=== PATIENT | female | born 1940 | race Caucasian/White ===

== ENCOUNTER 2019-04-06 13:39 | Inpatient (IN) | payer OTHER ==
[~2019-04-06] VITALS: Ht 162.6 cm; Wt 67.9 kg
[~2019-04-06 13:39] MED LIST: ASPIR 8181 MG PO; CIPRO500 MG PO; CRESTOR10 MG PO; CRESTOR40 MG PO; HYDROCHLOROTHIA25 M2 PO; PROZAC20 MG PO; TICLID250 MG PO; VASOTEC10 MG PO
[2019-04-06 13:44] VITALS: BP 138/70
[2019-04-06] MEDS ORDERED: PROZAC20 MG PO (13:48)
[2019-04-06 15:28] LABS: ABSOLUTE BASOPHILS 0.1 thou/uL (0.0-0.2); ABSOLUTE EOSINOPHILS 0.3 thou/uL (0.0-0.7); ABSOLUTE LYMPHOCYTES 1.5 thou/uL (0.8-5.3); ABSOLUTE MONOCYTES 0.3 thou/uL (0.0-1.2); ABSOLUTE NEUTROPHILS 6.5 thou/uL (1.6-8.1); BASOPHILS 0.9 %; EOSINOPHILS 3.6 %; HEMATOCRIT 34.9 % (37.0-47.0); HEMOGLOBIN 11.8 gm/dL (12.0-15.0); LYMPHOCYTES 17.6 %; MCH 30.7 pg (26.0-34.0); MCHC 33.8 g/dL (28.0-37.0); MCV 90.7 fL (80.0-100.0); MONOCYTES 3.9 %; MPV 7.1 fl. (7.2-11.1); NUCLEATED RBCS 0 /100WBC; PLATELET COUNT* 379 thou/uL (150-400); RBC 3.85 mil/uL (4.20-5.00); RDW-CV 13.5 % (10.5-14.5); WBC 8.8 thou/uL (4.0-11.0)
[2019-04-06 15:36] LABS: CALCIUM 9.4 mg/dL (8.5-10.1); CREATININE 1.4 mg/dL (0.6-1.3); POTASSIUM 4.3 mmol/L (3.5-5.1)
[2019-04-06 15:41] LABS: TOTAL BILIRUBIN 0.3 mg/dL (<0.1-1.0); TOTAL PROTEIN 7.2 g/dL (6.4-8.2)
[2019-04-06 16:52] VITALS: BP 158/91
[2019-04-06 17:15] VITALS: BP 157/69
--- NOTE | 2019-04-06 18:12 | NUR ---
PT ARRIVED TO ROOM 201 AT APPROX 1700. ADMISSION HX AND ASSESMENT DONE CHARTED.PT AMBULATES FROM CART TO BED WITH NO DIFFICULTY. PT REPORTS SOME TONGUE SWELLING THAT SHE STATES IS BETTER. PT ABLE TO EAT AND DRINK WITH OUT DIFFICULTY. DISCUSSED PLAN OF CARE WITH PT AND FAMILY, QUESTIONS ANSWERED. WILL CONTINUE WITH PLAN OF CARE.
[2019-04-06 20:00] VITALS: BP 129/44
--- NOTE | 2019-04-06 20:00 | NUR ---
RECEIVED REPORT AND ASSUMED CARE OF PT, ASSESSMENT COMPLETED. HOB ELEVATED, NO SOB OR DIFFICULTY WITH BREATHING. SM AMT OF RT SIDE FACIAL EDEMA NOTED. TELEMETRY ON SHOWING SR WITH PVC. WILL CONT TO MONITOR AND ASSIST NEEDED.
[2019-04-07] VITALS: BP 125/57
[2019-04-07 04:00] VITALS: BP 128/61
[2019-04-07 05:20] LABS: CALCIUM 9.2 mg/dL (8.5-10.1); CREATININE 1.4 mg/dL (0.6-1.3); MAGNESIUM 2.2 mg/dL (1.8-2.4); POTASSIUM 4.9 mmol/L (3.5-5.1)
--- NOTE | 2019-04-07 05:29 | NUR ---
SLEPT WELL TONIGHT. ABLE TO AWAKEN BUT IMMEDIATELY BACK TO SLEEP. ASSESSMENT REMAINS UNCHANGED, NO DIFFICULTY SWALLOWING OR SPEAKING. TELEMETRY CONT TO SHOW SR WITH OCC PVC. HS GOALS OF REST AND SAFETY ACHIEVED. HOURLY ROUNDING OBSERVED.
[2019-04-07 08:00] VITALS: BP 143/61
--- NOTE | 2019-04-07 11:20 | NUR ---
Pt is A&O. Resides at home with her dtr. Active and independent. No DME. No hx of HH or SNF. Goal is home at dc, no needs anticipated. DPOA completed and notarized, copy placed on Pt's chart.
[2019-04-07 15:59] VITALS: BP 108/51
[2019-04-07 20:00] VITALS: BP 136/46
--- NOTE | 2019-04-07 20:21 | NUR ---
ASSUSSMED CARE OF PT APPROX 0730. CARE COMPLETED CHARTED. PT NEEDS MET. PT DENIES HAVING PAIN. PT CALLS OUT FOR NEEDS. CALL LIGHT WITHIN REACH.
--- NOTE | 2019-04-07 20:33 | NUR ---
i have reviewed and agree with the charting of mac Mesa RN on 04/07/19
--- NOTE | 2019-04-08 03:17 | NUR ---
ASSUMED PT CARE AT 1930. ASSESSMENT COMPLETED CHARTED. ABLE TO MAKE NEEDS KNOWN. UP AD JOHN IN ROOM. NO C/O PAIN, DISCOMFORT, OR SOA. PT HAS SORES ON THE SIDES OF HER TONGUE, NO DIFFICULTY SPEAKING. PT RESTING IN BED MOST OF THE NIGHT. WILL CONTINUE TO MONITOR.
[2019-04-08 04:00] VITALS: BP 133/56
[2019-04-08 05:01] LABS: CALCIUM 8.7 mg/dL (8.5-10.1); CREATININE 1.7 mg/dL (0.6-1.3); POTASSIUM 4.2 mmol/L (3.5-5.1)
[2019-04-08 08:00] VITALS: BP 123/63
[2019-04-08 13:59] VITALS: BP 123/63
== END 2019-04-08 14:20 | disposition home or self-care (01) | DRG 918 ==
LOC: M.ERS 13:39 → M.2W 15:05 → M.TBA-ER 15:05 → M.2W 17:14
PROVIDERS: Family Medicine; ADMIT Internal Medicine
DX: T46.4X1A Poisoning by angiotensin-converting-enzyme inhibitors, accidental (unintentional), initial encounter (principal); T78.3XXA Angioneurotic edema, initial encounter; F17.210 Nicotine dependence, cigarettes, uncomplicated; D64.9 Anemia, unspecified; I65.29 Occlusion and stenosis of unspecified carotid artery; I12.9 Hypertensive chronic kidney disease with stage 1 through stage 4 chronic kidney disease, or unspecified chronic kidney disease; F32.9 Major depressive disorder, single episode, unspecified; N18.3 Chronic kidney disease, stage 3 (moderate); Y92.89 Other specified places as the place of occurrence of the external cause; Z98.42 Cataract extraction status, left eye; Z98.41 Cataract extraction status, right eye; Z88.1 Allergy status to other antibiotic agents; Z88.8 Allergy status to other drugs, medicaments and biological substances